=== PATIENT | male | born 1995 | race Caucasian/White ===

== ENCOUNTER 2018-09-12 11:08 | Emergency (ER) | payer BC ==
[~2018-09-12] VITALS: Ht 165.1 cm; Wt 83.0 kg
[2018-09-12] MEDS ORDERED: AMOX TR-K CLV1 EAC2 ORAL (11:17)
[2018-09-12 11:23] VITALS: BP 133/76
--- NOTE | 2018-09-12 11:52 | Emergency Room Report ---
History of Present Illness General Chief Complaint: Dizziness Source: Patient Present Illness HPI Patient reports that on Saturday started having sore throat runny nose Low-grade fever and headaches He saw his physician yesterday was put on Augmentin Was also discussed with the possibility of meningitis given the headache and fevers Patient reports that he's had intermittent fevers since yesterday still Denies any neck pain or photophobia Denies any meningismal back discomfort Patient has increased sore throat 8 out of 10 Pain with swallowing Also headache that is intermittent 8 out of 10 Denies any chest pain denies any cough Denies any recent travel Allergies: Coded Allergies: No Known Allergies (Unverified , 09/12/18) Patient History Past Medical History: see triage record Pertinent Family History: none Reviewed Nursing Documentation: PMH: Agreed; PSxH: Agreed Review of Systems All Other Systems: negative except mentioned in HPI Physical Exam Vital Signs Date Time Temp Pulse Resp B/P (MAP) Pulse Ox O2 Delivery O2 Flow Rate FiO2 09/12/18 11:11 102.9 94 20 129/79 99 Room Air Sp02 EP Interpretation: reviewed, normal General Appearance: well appearing, no apparent distress Head: normocephalic, atraumatic Eyes: bilateral eye PERRL, bilateral eye EOMI ENT: hearing grossly normal, normal pharynx, TMs + canals normal, uvula midline Neck: full range of motion, supple, no meningismus, no bony tend Respiratory: lungs clear, normal breath sounds, no rhonchi, no respiratory distress, no retraction, no accessory muscle use Cardiovascular #1: normal peripheral pulses, regular rate, rhythm, no edema, no gallop, no JVD, no murmur Gastrointestinal: normal bowel sounds, non tender, soft, no mass, no organomegaly, non-distended, no guarding, no hernia, no pulsatile mass, no rebound Genitourinary: no CVA tenderness Musculoskeletal: normal inspection Neurologic: oriented x3, responsive, pressroom foreman III-XII nml as tested, motor strength/ tone normal, sensory intact Psychiatric: mood/affect normal Skin: normal color, no rash, warm/dry, palpation normal Lymphatic: normal inspection, no adenopathy Medical Decision Making Diagnostic Impression: Primary Impression: Pharyngitis ER Course Patient has clinical findings consistent with pharyngitis Baseline blood work was initiated which reveals a mildly elevated white blood cell count On reevaluation patient reports he feels significantly improved Patient continues not to appear septic or toxic There is a lack of meningismal findings Patient sitting up in the gurney moving his head again not showing any signs of meningeal pathology I did discuss with him given the elevated white blood cell count, the headache and fever, that meningitis does need to be considered, I discussed with him the procedure for evaluating further information, and the patient not want to perform that test at this time I feel that he is appropriate as well for very close follow-up Patient is appropriate historian and I feels appropriate for return to the emergency room with any worsening symptoms Labs Test 09/12/18 11:00 White Blood Count 16.2 K/UL (4.8-10.8) Red Blood Count 5.14 M/UL (4.70-6.10) Hemoglobin 15.6 G/DL (14.2-18.0) Hematocrit 44.8 % (42.0-52.0) Mean Corpuscular Volume 87 FL (80-99) Mean Corpuscular Hemoglobin 30.2 PG (27.0-31.0) Mean Corpuscular Hemoglobin Concent 34.7 G/DL (32.0-36.0) Red Cell Distribution Width 10.4 % (11.6-14.8) Platelet Count 200 K/UL (150-450) Mean Platelet Volume 8.1 FL (6.5-10.1) Neutrophils (%) (Auto) 74.2 % (45.0-75.0) Lymphocytes (%) (Auto) 13.8 % (20.0-45.0) Monocytes (%) (Auto) 11.0 % (1.0-10.0) Eosinophils (%) (Auto) 0.0 % (0.0-3.0) Basophils (%) (Auto) 1.0 % (0.0-2.0) Sodium Level 135 MMOL/L (136-145) Potassium Level 3.5 MMOL/L (3.5-5.1) Chloride Level 96 MMOL/L (98-107) Carbon Dioxide Level 29 MMOL/L (21-32) Anion Gap 10 mmol/L (5-15) Blood Urea Nitrogen 11 mg/dL (7-18) Creatinine 1.2 MG/DL (0.55-1.30) Estimat Glomerular Filtration Rate > 60 mL/min (>60) Glucose Level 110 MG/DL (74-106) Calcium Level 8.8 MG/DL (8.5-10.1) Last Vital Signs Date Time Temp Pulse Resp B/P (MAP) Pulse Ox O2 Delivery O2 Flow Rate FiO2 09/12/18 11:23 102.0 97 20 133/76 98 Room Air Status: improved Disposition: HOME, SELF-CARE Condition: Improved Scripts Ibuprofen* (MOTRIN*) 600 Mg Tablet 600 MG ORAL Q8H PRN for For Pain, #20 TAB 0 Refills Prov: Markel Mcgovern DO 09/12/18 Additional Instructions: Patient is provided with the discharge instructions notified to follow up with primary doctor in the next 2-3 days otherwise return to the er with any worsening symptoms. Please note that this report is being documented using [employer] technology. This can lead to erroneous entry secondary to incorrect interpretation by the dictating instrument. Markel Mcgovern DO Sep 12, 2018 11:52
[2018-09-12 11:57] LABS: HEMATOCRIT 44.8 % (42.0-52.0); HEMOGLOBIN 15.6 G/DL (14.2-18.0); LYMPHOCYTES % (AUTO) 13.8 % (20.0-45.0); MEAN CORPUSCULAR VOLUME 87 FL (80-99); NEUTROPHILS % (AUTO) 74.2 % (45.0-75.0); PLATELET COUNT 200 K/UL (150-450); RED BLOOD COUNT 5.14 M/UL (4.70-6.10); RED CELL DISTRIBUTION WIDTH 10.4 % (11.6-14.8); WHITE BLOOD COUNT 16.2 K/UL (4.8-10.8)
[2018-09-12] MEDS ORDERED: Dexamethasone 4mg/ml vial IVP ONE (12:00)
[2018-09-12] MEDS ORDERED: Ketorolac 30mg Inj IV ONE (12:00)
[2018-09-12 12:07] LABS: ANION GAP 10 mmol/L (5-15); BLOOD UREA NITROGEN 11 mg/dL (7-18); CALCIUM 8.8 MG/DL (8.5-10.1); CARBON DIOXIDE 29 MMOL/L (21-32); CHLORIDE 96 MMOL/L (98-107); CREATININE 1.2 MG/DL (0.55-1.30); POTASSIUM 3.5 MMOL/L (3.5-5.1); SODIUM 135 MMOL/L (136-145)
[2018-09-12 13:32] VITALS: BP 118/67
[2018-09-12] MEDS ORDERED: IBUPROFEN600 MG ORAL (13:56)
[2018-09-12] MEDS ORDERED: Acetaminophen 500mg (ES) tab ORAL ONE (14:00)
[2018-09-12] MEDS ORDERED: cefTRIAXone 1 GM in NS 55 ML IVPB ONE (14:00)
[2018-09-12 14:50] VITALS: BP 121/63
== END 2018-09-12 14:48 | disposition home or self-care (01) ==
LOC: EMR 14:05
DX: J02.9 Acute pharyngitis, unspecified (principal); R42 Dizziness and giddiness
CPT/HCPCS: 36415; 80048; 85025; 96361; 96365; 96375; 99284; J0696; J1100; J1885

== ENCOUNTER 2019-02-17 21:22 | Emergency (ER) | payer BC ==
[~2019-02-17] VITALS: Ht 167.6 cm; Wt 72.6 kg
[~2019-02-17 21:22] MED LIST: AMOX TR-K CLV1 EAC2 ORAL; IBUPROFEN600 MG ORAL
[2019-02-17] MEDS ORDERED: NKM (21:29)
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
[2019-02-17 21:33] VITALS: BP 126/76
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
--- NOTE | 2019-02-17 21:39 | NUR ---
ED Nurse Note: FAMILY AT BEDSIDE. ERMD AT BEDSIDE FOR SUTURING.
[2019-02-17] MEDS ORDERED: IBUPROFEN600 MG ORAL (21:49)
[2019-02-17] MEDS ORDERED: Bacitracin Oint UD TOPIC ONE ×2 (21:51→22:00)
[2019-02-17 21:55] VITALS: BP 126/76
--- NOTE | 2019-02-17 21:55 | NUR ---
ER DISCHARGE NOTE: Patient is cleared to be discharged per ERMD, pt is aox4, on room air, with stable vital signs. ACCOMPANIED BY FAMILY MEMBER. pt was given dc and prescription instructions, pt was able to verbalize understanding, pt id band REMOVED. pt is able to ambulate with steady gait. pt took all belongings.
== END 2019-02-17 21:55 | disposition home or self-care (01) ==
LOC: EMR 21:46
DX: S01.81XA Laceration without foreign body of other part of head, initial encounter (principal); S09.90XA Unspecified injury of head, initial encounter; V19.88XA Pedal cyclist (driver) (passenger) injured in other specified transport accidents, initial encounter; Y92.410 Unspecified street and highway as the place of occurrence of the external cause
CPT/HCPCS: 99283

== ENCOUNTER 2020-07-02 02:50 | Emergency (ER) | payer BC ==
[~2020-07-02] VITALS: Ht 165.1 cm; Wt 81.6 kg
[~2020-07-02 02:50] MED LIST changes: +NKM
[2020-07-02 03:06] VITALS: BP 113/69
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
[2020-07-02] MEDS ORDERED: HYDROCORTISONE-57 GM TP (03:16)
[2020-07-02] MEDS ORDERED: BENADRYL ALLERG25 M1 PO (03:16)
[2020-07-02 03:22] VITALS: BP 116/73
== END 2020-07-02 03:22 | disposition home or self-care (01) ==
LOC: EMR 03:22
DX: T14.8XXA Other injury of unspecified body region, initial encounter (principal); W57.XXXA Bitten or stung by nonvenomous insect and other nonvenomous arthropods, initial encounter; Y92.9 Unspecified place or not applicable; L50.9 Urticaria, unspecified
CPT/HCPCS: 99285